=== PATIENT | male | born 1960 | race African-American/Black ===

== ENCOUNTER 2016-11-03 11:47 | Emergency (ER) | payer OTHER ==
[~2016-11-03] VITALS: Ht 162.6 cm; Wt 57.2 kg
--- NOTE | 2016-11-03 12:13 | ED GENERAL ADULT ---
See Addendum History of Present Illness General Chief Complaint: General Adult Stated Complaint: WENT TO CLINIC SUG[facility] OVER 700 Source: patient Exam Limitations: no limitations Allergies Coded Allergies: No Known Allergies (11/03/16) Reconcile Medications Ciprofloxacin HCl (Cipro) 500 MG TABLET 1 TAB PO BID UTI Insulin Detemir (Levemir) 100 UNIT/ML VIAL 10 U SC D PRN DM Metformin HCl 500 MG TABLET 1 TAB PO BID DIABETES (Reported) Triage Note: PT SENT FROM [facility] FOR COMPLAINTS OF FEELING TIRED , INCREASED URINATION AND BS ALL OVER THE PLACE, BS 463 AT TRIAGE , RAN OUT OF INSULIN, AND HAS NOT USED FOR OVER 1 YEAR, PT ALSO STATES THAT MIDDLE TOE ON L FOOT IS BLACK Triage Nurses Notes Reviewed? yes Onset: Gradual Duration: day(s): Timing: recent history HPI: 11/03/16 This is a 56-year-old male presents to the emergency department for weakness and tingling in his hands and feet. The patient states she has a history of insulin -dependent diabetes. He says he was forced to stop taking his insulin because of financial concerns. He is on metformin. The onset of the symptoms was abrupt, the duration has been days, the severity is significant as his symptoms required to come to the emergency department for care. He also states that his left third toe has turned black. He would like this looked at. He denies abdominal pain. He admits to polyuria and polydipsia. No fever. (NATALY ROSE DO) Vital Signs & Intake/Output Vital Signs & Intake/Output Vital Signs Date Time Temp Pulse Resp B/P Pulse O2 O2 Flow FiO2 Ox Delivery Rate 11/03 1724 98.1 80 18 124/78 96 Room Air 11/03 1445 98.0 70 20 130/66 96 Room Air 11/03 1329 98.7 88 20 140/78 100 Room Air 11/03 1252 96 11/03 1153 98.3 113 18 133/83 96 Room Air Past History Travel History Traveled to [place] past 21 day No Medical History Any Pertinent Medical History? 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 No (NATALY ROSE DO) Review of Systems Review of Systems Constitutional: Denies: fever. EENTM: Denies: visual changes. Respiratory: Denies: short of breath. Cardiovascular: Denies: chest pain. GI: Denies: abdominal pain. Genitourinary: Reports: see HPI. Musculoskeletal: Reports: muscle pain. Skin: Denies: rash. Neurological/Psychological: Denies: headache. Hematologic/Endocrine: Reports: no symptoms. Immunologic/Allergic: Reports: see HPI. (NATALY ROSE DO) Physical Exam Physical Exam General Appearance: alert, awake, anxious, moderate distress Head: atraumatic, normal appearance Eyes: Bilateral: normal appearance, PERRL, EOMI. Ears, Nose, Throat: dry mucous membranes Neck: normal inspection, supple, full range of motion Respiratory: normal breath sounds, chest non-tender, no respiratory distress Cardiovascular: regular rate/rhythm Peripheral Pulses: 4+ radial (R), 4+ radial (L) Gastrointestinal: soft, non-tender Back: normal range of motion Extremities: normal range of motion, no edema Neurologic/Psych: awake, alert, oriented x 3 Skin: intact Lymphatic: axilla node tender (R) ( see below) Comments: The left third toe has a distal area of blackish discoloration consistent with dry gangrene. X-ray of the left foot showing below- PATIENT: FREDA WILEY PRESENT AGE: 56 PATIENT ACCOUNT NO: [id number] : 58 LOCATION: [facility] ORDERING PHYSICIAN: NATALY RSOE DO SERVICE DATE: 11/03/16 EXAM TYPE: RAD - XRY-FOOT COMPLETE, LEFT EXAMINATION: XR FOOT, LEFT CLINICAL INFORMATION: Black toe. Evaluate for osteomyelitis. COMPARISON: No relevant prior imaging is build. TECHNIQUE: AP, lateral, and oblique views of the left foot. FINDINGS: There is erosion of the phalangeal tuft of the third digit and there is associated swelling of the soft tissues of the third toe. These findings are consistent with osteomyelitis. 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 The bones of midfoot are unremarkable. No joint effusion. IMPRESSION: There is destruction of the phalangeal tuft of the third digit with associated soft tissue swelling. These findings are consistent with osteomyelitis. Otherwise no acute finding. 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 DICTATED BY: BRANDON UMANA MD DATE/TIME DICTATED:11/03/161339 HYSTER DRIVER:ANDREZ DATE/TIME TRANSCRIBED:11/03/161339 CONFIDENTIAL, DO NOT COPY WITHOUT APPROPRIATE AUTHORIZATION. <Electronically signed in Other Vendor System> SIGNED BY: BRANDON UMANA MD 11/039 Core Measures ACS in differential dx? No CVA/TIA Diagnosis: No Severe Sepsis Present: No Septic Shock Present: No (NATALY ROSE DO) Progress Differential Diagnoses I considered the following diagnoses in my evaluation of the patient: [Gangrene, osteomyelitis, diabetic ketoacidosis, hyperglycemia, sepsis] X-ray of the left foot showing below- PATIENT: FREDA WILEY PRESENT AGE: 56 PATIENT ACCOUNT NO: [id number] : 58 LOCATION: [facility] ORDERING PHYSICIAN: NATALY ROSE DO SERVICE DATE: 11/03/16 EXAM TYPE: RAD - XRY-FOOT COMPLETE, LEFT EXAMINATION: XR FOOT, LEFT CLINICAL INFORMATION: Black toe. Evaluate for osteomyelitis. COMPARISON: No relevant prior imaging is build. TECHNIQUE: AP, lateral, and oblique views of the left foot. FINDINGS: There is erosion of the phalangeal tuft of the third digit and there is associated swelling of the soft tissues of the third toe. These findings are consistent with osteomyelitis. 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 The bones of midfoot are unremarkable. No joint effusion. IMPRESSION: There is destruction of the phalangeal tuft of the third digit with associated soft tissue swelling. These findings are consistent with osteomyelitis. Otherwise no acute finding. 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 DICTATED BY: BRANDON UMANA MD DATE/TIME DICTATED:11/03/161339 HYSTER DRIVER:ANDREZ DATE/TIME TRANSCRIBED:11/03/161339 CONFIDENTIAL, DO NOT COPY WITHOUT APPROPRIATE AUTHORIZATION. <Electronically signed in Other Vendor System> SIGNED BY: DONG MATHIS,BRANDON Patrick 11/03 134 Plan of Care: Orders Procedure Date/time Status Add-on Test (ER Only) 11/03 171 Active URINALYSIS 11/03 1328 Complete MIXED VENOUS BLOOD GAS (GEN) 11/03 1251 Complete TROPONIN LEVEL 11/03 1251 Complete COMPREHENSIVE METABOLIC PANEL 11/03 1251 Complete CBC WITHOUT DIFFERENTIAL 11/03 1251 Complete ACETONE 11/03 1251 Complete EKG 11/03 1251 Active Laboratory Tests 11/03/16 1334: Urine Color STRAW, Urine Clarity HAZY H, Urine pH 6.0, Ur Specific [place] <= 1.005, Urine Protein TRACE H, Urine Ketones TRACE H, Urine Nitrite NEG, Urine Bilirubin NEG, Urine Urobilinogen 0.2, Ur Leukocyte Esterase TRACE H, Ur Microscopic SEDIMENT EXAMINED, Urine RBC 1-3, Urine WBC 15-25 H, Urine Hemoglobin TRACE-INTACT H, Urine Glucose >=1000 H 11/03/16 1259: Bicarbonate Actual 24, Mixed VBG pH 7.41, Mixed VBG pCO2 38 L, Mixed VBG O2 Saturation 19.2 L, P-50 (Temp Corrected) N, O2 Concentration % .21, Temperature 97.0, O2 Delivery Method RA, Phlebotomy Draw Site RT 11/03/16 1259: Bicarbonate Actual Pending, Mixed VBG pH Pending, Mixed VBG pCO2 Pending, Mixed VBG O2 Saturation Pending, P-50 (Temp Corrected) Pending, Carboxyhemoglobin Pending, O2 Concentration % Pending, Temperature Pending, O2 Delivery Method Pending, Anion Gap 9, Estimated GFR > 60, BUN/Creatinine Ratio 36.3 H, Glucose 619 *H, Calcium 10.1, Total Bilirubin 0.9, AST 59, ALT 90 H, Alkaline Phosphatase 544 H, Troponin I < 0.01, Total Protein 7.3, Albumin 4.0, Globulin 3.3, Albumin/Globulin Ratio 1.2, CBC w Diff NO MAN DIFF REQ, RBC 5.64, MCV 85.9, MCH 28.9, RDW 12.4, MPV 8.1, Gran % 72.3, Lymphocytes % 19.0 L, Monocytes % 7.1 , Eosinophils % 1.5, Basophils % 0.1, Absolute Granulocytes 8.7 H, Absolute Lymphocytes 2.3, Absolute Monocytes 0.9 H, Absolute Eosinophils 0.2, Absolute Basophils 0, PUBS MCHC 33.7, Phlebotomy Draw Site Pending, Acetone Level NEGATIVE 11/03/2016 3:27:10 PM Patient signed out to me by Dr. Rose. Pending consult from Dr. Yang. 4:40 PM D/W Dr. Yang - will come to the ed in 15-[address] Yang and is going to follow up outpatient. Plans for outpatient toe amputation. Prescription called in for insulin to his pharmacy. (VOLODYMYR MATHIS,ANNA) Initial ED EKG: NSR, MOTION ARTIFACT, NONSPECIFIC st-t WAVE ABNORMALITY (NATALY ROSE DO) Departure Departure Condition: Stable Referrals: SHAYNA BALDERAS APRN (PCP/Family) Departure Forms: Customer Survey General Discharge Information Prescriptions: Current Visit Scripts Ciprofloxacin HCl (Cipro) 1 TAB PO BID #14 TAB Insulin Detemir (Levemir) 10 U SC D PRN DM #1 VIAL Comments 11/03/16 3 PM The patient was signed out to Anna Stark MD at 3 PM He is awaiting reevaluation of his glucose and podiatry consult. The patient was treated with IV fluids, IV insulin, he is pending podiatry consult. (NATALY ROSE DO) Departure Time of Disposition: 1714 Disposition: HOME OR SELF CARE Clinical Impression Primary Impression: Hyperglycemia Secondary Impressions: Gangrene, UTI (urinary tract infection) Additional Instructions: TAKE THE CIPRO AND INSULIN DIRECTED. FOLLOW UP WITH DR YANG IN THE OFFICE FOR YOUR AMPUTATION. YOUR PRESCRIPTIONS IS AT [facility]. (VOLODYMYR MATHIS,ANNA) Critical Care Note Critical Care Note Critical Care Time: non-applicable (NATALY ROSE DO) (NATALY ROSE DO)
[2016-11-03] MEDS ORDERED: METFORMIN HCL500 M3 PO (12:47)
[2016-11-03 13:12] LABS: ABSOLUTE BASOPHIL COUNT 0 /CUMM (0.0-0.2); ABSOLUTE EOSINOPHIL COUNT 0.2 /CUMM (0.0-0.7); ABSOLUTE GRANULOCYTE CT 8.7 /CUMM (1.4-6.5); ABSOLUTE LYMPH COUNT 2.3 /CUMM (1.2-3.4); ABSOLUTE MONOCYTE COUNT 0.9 /CUMM (0.10-0.60); BASOPHIL % 0.1 % (0.0-2.0); EOSINOPHIL % 1.5 % (0-5); GRANULOCYTE % 72.3 % (42.2-75.2); HEMATOCRIT 48.5 % (42-52); MEAN CORPUSCULAR HGB 28.9 PG (27.0-31.0); MEAN CORPUSCULAR HGB CONC 33.7 G/DL (33.0-37.0); MEAN CORPUSCULAR VOLUME 85.9 FL (80.0-94.0); MEAN PLATELET VOLUME 8.1 FL (7.4-10.4); PLATELET COUNT 327 /CUMM (130-400); RBC DISTRIBUTION WIDTH 12.4 % (11.5-14.5); RED BLOOD CELL CT 5.64 /CUMM (4.70-6.10); WHITE BLOOD CELL COUNT 12.1 /CUMM (4.8-10.8)
--- NOTE | 2016-11-03 13:47 | RADIOLOGY REPORT ---
EXAMINATION: XR FOOT, LEFT CLINICAL INFORMATION: Black toe. Evaluate for osteomyelitis. COMPARISON: No relevant prior imaging is build. TECHNIQUE: AP, lateral, and oblique views of the left foot. FINDINGS: There is erosion of the phalangeal tuft of the third digit and there is associated swelling of the soft tissues of the third toe. These findings are consistent with osteomyelitis. 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 The bones of midfoot are unremarkable. No joint effusion. IMPRESSION: There is destruction of the phalangeal tuft of the third digit with associated soft tissue swelling. These findings are consistent with osteomyelitis. Otherwise no acute finding. 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
[2016-11-03] MEDS ORDERED: CIPRO500 M1 PO ×2 (17:16→17:20)
[2016-11-03] MEDS ORDERED: LEVEMIR100 UNIT/1 SQ (17:16)
[2016-11-03] MEDS ORDERED: LEVEMIR100 UNIT/1 SC (17:20)
[2016-11-03 17:24] VITALS: BP 124/78
== END 2016-11-03 17:19 ==
LOC: ERH 11:47
PROVIDERS: Emergency Medicine
DX: E11.65 Type 2 diabetes mellitus with hyperglycemia (principal); E11.52 Type 2 diabetes mellitus with diabetic peripheral angiopathy with gangrene; N39.0 Urinary tract infection, site not specified
CPT/HCPCS: 73630-LT; 81001; 87086; 87147; 93005; 93010; 96361; 96374; J1815

== ENCOUNTER 2016-11-09 03:52 | Inpatient (IN) | payer OTHER ==
--- NOTE | 2016-11-07 16:01 | History & Physical Pre-Op ---
General Information and HPI History of Present Illness: Ortiz is a 56-year-old poorly controlled diabetic with a long-standing history of a nonhealing ulcer to his left foot. Ortiz presented to the ER with his daughter after after feeling unwell and noticing worsening changes to his toe. Patient admits to a foul odor with redness and swelling extending to the metatarsophalangeal joint. The patient denies systemic signs of infection. Patient denies nausea vomiting fever chills. 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 Heart sounds rate and rhythm regular. Lower extremity physical exam demonstrates intact pedal pulses bilaterally. Pulses dorsalis pedis and posterior tibial arteries are palpable bilaterally. Patient noted to have a sensory deficit to the plantar aspect of both feet in a moccasin type distribution. Assessment/Plan Assessment/Plan: Left foot osteomyelitis. A lengthy discussion reviewing both surgical and conservative options was held the patient at bedside and the patient elects to go forward with surgery despite the risks. As Ranked By This Provider Problem List: 1. Other acute osteomyelitis, left ankle and foot Attending MD Review Statement Attending Statement Attending MD Statement: examined this patient
[~2016-11-09] VITALS: Ht 162.6 cm; Wt 56.7 kg
[~2016-11-09 03:52] MED LIST: CIPRO500 M1 PO; LEVEMIR100 UNIT/1 SC; LEVEMIR100 UNIT/1 SQ; METFORMIN HCL500 M3 PO
--- NOTE | 2016-11-09 11:57 | Operative Report ---
Operative/Inv Procedure Report Surgery Date: 11/09/16 Name of Procedure: 1 open incision and drainage deep to the D fashion with exposure of the extensor and flexor tendon and tendon sheath multiple sites left foot 2 partial third ray resection left foot 3 intraoperative administration of ankle block anesthesia 4 excisional debridement Pre-Operative Diagnosis: 1 open necrotic wound left foot 2 osteomyelitis left foot 3 diabetic peripheral neuropathy Post-Operative Diagnosis: The same Estimated Blood Loss: less than 50ml Surgeon/Tank Riveter: CATHLEEN YANG DPM Anesthesia: moderate sedation, block Operative/Procedure Note Note: After obtaining informed consent the patient was brought to the operating room and placed on the operating table in the supine position. The patient isn't securely fastened to the operating table utilizing safety belt. After administration of IV sedation, 10 mL of 0.5% Marcaine plain was infiltrated about the patient's left ankle. Left foot and ankle within scrubbed prepped and draped in usual aseptic manner. Attention directed to the left foot well. Full -thickness chronic was identified. A 15 blade visualized sharply revised skin margins. Dissection was then carried down deep to the fashion with exposure of the extensor and flexor tendon tension multiple sites left foot. All necrotic nonviable infected tissue sharply evacuated wound bed. The dissection was then carried down to the periosteum overlying the distal third ray which is incised reflected. Sagittal bone saw was utilized performed through and through osteotomy. The distal osseous segment was freed and passed number field specimen sent for both microbiologic and pathologic inspection. Nipple was then irrigated with 3 L normal sterile saline. Following this the foot was redraped and the surgeon's top gloves were changed clean gloves. Any bleeding vessels identified were cauterized or ligated as encountered. Nipple was then packed with iodoform and 3-0 nylon retention sutures were placed. Foot was dressed with 4 x 4's Kerlix and Jose wrap. The patient was noted to tolerate both procedure and anesthesia well and the patient was transported from the operating room to recovery by sent stable.
--- NOTE | 2016-11-09 14:09 | Cons- Medical ---
JOHANN CHARLES 11/09/16 1407: General Information and HPI Consulting Request Date of Consult: 11/09/16 Requested By: CATHLEEN YANG DPM Reason for Consult: Management of diabetes Source of Information: patient Exam Limitations: no limitations History of Present Illness: Patient is a 56-year-old man with past medical history of insulin-dependent diabetes mellitus, nonhealing ulcer of left foot and diabetic neuropathy. Patient is status post excisional debridement and partial third ray resection of left foot by Dr. Yang today. On November 03 patient was sent from [facility] for complaints of feeling tired, hyperglycemia, black middle toe of left foot with increased redness and swelling and increased urination. In ER he was afebrile and hemodynamically stable and found to have leukocytosis 12.1, hyperkalemia 5.9 and blood glucose of 619. He was treated for hyperglycemia with IV fluids and IV insulin. He was also diagnosed with UTI. Left foot x-ray was done that showed third digit osteomyelitis. He was seen by Dr. Yang in ER who planned for outpatient toe amputation. Patient was discharged from ER on insulin Levemir for diabetes and ciprofloxacin for UTI. Urine culture was sent at that time that Later grew beta strep group B. Patient took ciprofloxacin for 2 days and came to the OR for toe amputation this morning. Preoperatively patient was hemodynamically stable. His blood sugar was 368 and he was given 5 units of insulin. Postoperatively patient does not have any complaints. He was following Dr. Valenzuela for his diabetes management who put him on insulin. Later on she moved and physician who took her spot was trying to wean him off insulin and started him on metformin. According to patient he took metformin only for 3 months. Because of insurance issues he was not taking insulin over a year. His diabetes is very poorly controlled. He has recently started seeing a PA, does not remember his name. Allergies/Medications Allergies: Coded Allergies: No Known Allergies (11/03/16) Home Med List: Ciprofloxacin HCl (Cipro) 500 MG TABLET 1 TAB PO BID UTI Insulin Detemir (Levemir) 100 UNIT/ML VIAL 10 U SC D PRN DM Metformin HCl 500 MG TABLET 1 TAB PO BID DIABETES (Reported) Current Medications: Current Medications Sig/Anastasiya Start time Last Medication Dose Route Stop Time Status Admin Acetaminophen 650 MG Q6P PRN 11/09 1351 AC PO Ampicillin Sodium/ 3,000 MG Q6 11/09 1800 AC Sulbactam Sodium IV Sodium Chloride 100 ML Docusate Sodium 100 MG BID PRN 11/09 1351 AC PO Heparin Sodium 5,000 UNIT Q8 11/09 1400 AC (Porcine) SC Insulin Aspart See Dose TIDAC 11/09 1700 DC Insts (1) SC Insulin Aspart 0 TIDAC 11/09 1700 AC SC Insulin Detemir 10 UNITS BID 11/09 2200 AC SC Oxycodone HCl 5 MG Q6P PRN 11/09 1351 AC PO Patient Medication 1 UNIT ONE NR 11/09 1415 AC Teaching ED 11/09 2014 Patient Medication 1 UNIT ONE NR 11/09 1415 AC Teaching ED 11/09 2014 Patient Medication 1 UNIT ONE NR 11/09 1415 Teaching ED 11/09 2014 Senna/Docusate Sodium 1 TAB DAILY NEEDED PRN 11/09 1351 AC PO Dose Instructions: (1)Insulin Aspart: NOVOLOG SLIDING SCALE Review of Systems Review of Systems Constitutional: Reports: see HPI. 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 Home Smoking Status: Current Everyday Smoker (3-5 cig/day) ETOH Use: denies use Illicit Drug Use: denies illicit drug use Functional Ability ADLs Independent: dressing, eating, toileting, bathing. Ambulation: independent IADLs Independent: shopping, housework, finances, food prep, telephone, transportation , medication admin. Employment History Employment: Employed Exam & Diagnostic Data Last 24 Hrs of Vital Signs/I&O Vital Signs Date Time Temp Pulse Resp B/P Pulse O2 O2 Flow FiO2 Ox Delivery Rate 11/09 1430 97.4 89 16 132/76 98 Room Air Physical Exam General Appearance: no apparent distress, alert, awake Neck: supple Respiratory: normal breath sounds, chest non-tender, lungs clear Cardiovascular: regular rate/rhythm Gastrointestinal: normal bowel sounds, soft, non-tender Back: normal inspection Extremities: left foot bandage in place. pulses palpable. sensations intact. Neurologic/Psych: no motor/sensory deficits, awake, alert, oriented x 3 Last 24 Hrs of Labs/Tez: not done Assessment/Plan Assessment/Plan Patient is a 56-year-old man with past medical history of insulin-dependent diabetes mellitus, nonhealing ulcer of left foot and diabetic neuropathy. Patient is status post excisional debridement and partial third ray resection of left foot by Dr. Yang today. Postoperatively his vitals were temperature 97.4, pulse 89, respiratory rate 16, blood pressure 132/76 and oxygen saturation 98% on room air. He offers no complaints. Pain is better controlled. Problem list 1. Left third toe osteomyelitis status post excisional debridement and partial third ray resection of left foot. Cultures were sent from OR. Patient has been started on IV Unasyn postoperatively. 2. Poorly controlled diabetes mellitus. Postop blood sugar is 343 3. Recent UTI. Patient was on ciprofloxacin. Urine cultures are growing beta strep group B, sensitive to penicillin and amoxicillin. Not sensitive to Cipro. Patient has already been started on IV Unasyn for osteomyelitis. we would follow up OR cultures. Continue pain management. We will start patient on medium dose NovoLog sliding scale and insulin Levemir 10 units twice a day. Accu-Cheks before each meal and at bedtime. Endocrinology consult. Nutrition consult for diabetic diet instructions. For UTI we will repeat UA and urine culture. Previous urine culture grew beta strep group B that is sensitive to penicillins and amoxicillin. Patient is already on Unasyn so it would cover for that too. We would repeat all labs in a.m. Continue diabetic diet. Subcutaneous heparin for DVT prophylaxis. Full code. Problem List: 1. Hyperglycemia 2. UTI (urinary tract infection) 3. Other acute osteomyelitis, left ankle and foot Consult Acknowledgment - Thank you for your consult request. SYED COYLE MD 11/09/16 8037: Assessment/Plan Consult Acknowledgment - Thank you for your consult request. Attending MD Review Statement Attending Statement Attending MD Statement: examined this patient, discuss w/resident/PA/PERSONAL INJURY LEGAL ASSISTANT, agreed w/resident/PA/PERSONAL INJURY LEGAL ASSISTANT, reviewed EMR data (avail), discussed with nursing, amended to note Attending Assessment/Plan: The patient is a 56 yo male with h/o DM2 (poorly controlled) with neuropathy who was admitted to the Podiatry service (Dr. Yang) after undergoing left foot ray amputation of the 3rd toe and drainage/debridement of a foot ulcer with X- ray showing osteomyelitis distal 3rd toe. He had been seen in the ED recently and had a blood sugar in the 600's and was begun back on insulin. Was also noted to have a UTI and was treated with 2 days of po Cipro (grew beta strep B from urine?). He has recently been seeing Merrick Fierro for his new PCP. He states he has had glucose meters at home that do not work. Admits to not being compliant with a diet and has not had instructions in many years. He has a history of problems with insurance coverage in the past. Currently he states he has still had high sugars when they have been checked. Physical Exam: VS: T 97.4, P 89, R 16, BP 132/76, PO 98% RA HEENT: eyes- PERRLA, EOMI sylvia- moist mucosa w/o lesions Neck: no bruits or JVD Chest: clear Cor: RRR, nl S1, S2 w/o murm Abd: BS+, soft, NT, - HSM Ext: s/p surgery left foot (dressing dry & intact), no edema Neuro: diminished sensation distal LE, alert & oriented x 3, non-focal exam otherwise Labs/Tests- as above Impression/Plan: #Osteomyelitis Left Foot- 3rd toe on X-ray with non-healing ulcer. S/P ray amputation, debridement and drainage done by Dr. Yang with deep culture done. No fever or leukocytosis. Plan: Agree with Unasyn as ordered pending cultures. Post operative care as per Dr. Yang. #DM2- poorly controlled for quite some time. As above, patient does not have functioning glucose meter at home and little knowledge of diet, etc. Plan: Endocrinology consult Dr. Campbell. Continue Levemir and sliding scale Humalog. Diabetic Teaching- Nutrition consult while in hospital. Will obtain glucose meter and have nursing do diabetic teaching. Will need further OP evaluation (ophthalmology, urine microalbumin, etc. ). May benefit from EL or ARB. #Recent UTI- as above, grew beta strep B from ED urine. Took Cipro x 2 days. Plan: Will repeat U/A & C&S, started on Unasyn for foot infection. #Diabetic Neuropathy- no c/o pain at present. Plan: Will follow.
[2016-11-09 14:30] VITALS: BP 132/76
[2016-11-09 18:30] VITALS: BP 124/70
--- NOTE | 2016-11-09 20:36 | Cons- Endocrinology ---
General Information and HPI Consulting Request Date of Consult: 11/09/16 Requested By: medical team Reason for Consult: DM management Source of Information: patient, old records Exam Limitations: no limitations History of Present Illness: 56 y/o male with Hx of uncontrolled DM type 2, intolerance to metformin due to GI side effects, was admitted for non healing left foot infection complicated with osteomyelitis, underwent surgical procedure. I was asked to see him for management of DM. His FSG was 324 after the procedure is done. Allergies/Medications Allergies: Coded Allergies: No Known Allergies (11/03/16) Home Med List: Ciprofloxacin HCl (Cipro) 500 MG TABLET 1 TAB PO BID UTI Insulin Detemir (Levemir) 100 UNIT/ML VIAL 10 U SC D PRN DM Metformin HCl 500 MG TABLET 1 TAB PO BID DIABETES (Reported) Review of Systems Review of Systems Constitutional: Reports: see HPI. Cardiovascular: Denies: chest pain, palpitations. Respiratory: Denies: short of breath. GI: Denies: abdominal pain. Musculoskeletal: Reports: see HPI. Hematologic/Endocrine: Denies: polyuria, polydipsia. 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 Home Smoking Status: Current Everyday Smoker (3-5 cig/day) ETOH Use: denies use Illicit Drug Use: denies illicit drug use Functional Ability ADLs Independent: dressing, eating, toileting, bathing. Ambulation: independent IADLs Independent: shopping, housework, finances, food prep, telephone, transportation , medication admin. Employment History Employment: Employed Exam & Diagnostic Data Last 24 Hrs of Vital Signs/I&O Vital Signs Date Time Temp Pulse Resp B/P Pulse O2 O2 Flow FiO2 Ox Delivery Rate 11/09 1830 98.0 86 20 124/70 96 Room Air 11/09 1430 97.4 89 16 132/76 98 Room Air Intake & Output 11/09 1600 11/09 0800 11/09 0000 Intake Total Output Total Balance Patient 126 lb Weight Physical Exam General Appearance: no apparent distress Neck: normal inspection Respiratory: decreased breath sounds Cardiovascular: regular rate/rhythm Extremities: s/p left foot procedure Assessment/Plan Assessment/Plan 56 y/o male with Hx of uncontrolled DM type 2, intolerance to metformin due to GI side effects, was admitted for non healing left foot infection complicated with osteomyelitis, underwent surgical procedure. DM management: 1.Levemir 10 units twice a day. 2. Novolog coverage before meals and Novolog coverage at bedtime-- detail see the inpatient DM orders. 3.check HbA1c and BMP tomorrow morning. 4. monitor FSGs. will follow Inpatient Diabetes Orders Before Each Meal: Bolus Insulin: Novolog < 80 mg/dl: no coverage 80-100 mg/dl: 4 units 101-120 mg/dl: 4 units 121-150 mg/dl: 4 units 151-200 mg/dl: 6 units 201-250 mg/dl: 8 units 251-300 mg/dl: 10 units 301-350 mg/dl: 12 units 351-400 mg/dl: 14 units > 400 mg/dl: 16 units Bedtime: Bolus Insulin: Novolog < 80 mg/dl: no coverage 80-100 mg/dl: no coverage 101-120 mg/dl: no coverage 121-150 mg/dl: no coverage 151-200 mg/dl: no coverage 201-250 mg/dl: no coverage 251-300 mg/dl: 2 units 301-350 mg/dl: 3 units 351-400 mg/dl: 4 units > 400 mg/dl: 5 units Consult Acknowledgment - Thank you for your consult request.
[2016-11-09 20:43] VITALS: BP 116/60
[2016-11-10 00:29] VITALS: BP 132/64
[2016-11-10 04:30] VITALS: BP 124/60
[2016-11-10 08:02] LABS: ABSOLUTE BASOPHIL COUNT 0.1 /CUMM (0.0-0.2); ABSOLUTE EOSINOPHIL COUNT 0.3 /CUMM (0.0-0.7); BASOPHIL % 0.6 % (0.0-2.0); MEAN CORPUSCULAR HGB 29.5 PG (27.0-31.0); MEAN CORPUSCULAR HGB CONC 34.4 G/DL (33.0-37.0); MEAN CORPUSCULAR VOLUME 85.9 FL (80.0-94.0); MEAN PLATELET VOLUME 8.1 FL (7.4-10.4)
[2016-11-10 08:31] LABS: ABSOLUTE GRANULOCYTE CT 5.2 /CUMM (1.4-6.5); ABSOLUTE MONOCYTE COUNT 0.5 /CUMM (0.10-0.60); EOSINOPHIL % 3.3 % (0-5); PLATELET COUNT 280 /CUMM (130-400); RBC DISTRIBUTION WIDTH 12.6 % (11.5-14.5); RED BLOOD CELL CT 4.38 /CUMM (4.70-6.10); WHITE BLOOD CELL COUNT 9.1 /CUMM (4.8-10.8)
[2016-11-10 08:37] LABS: HEMATOCRIT 37.6 % (42-52)
--- NOTE | 2016-11-10 08:45 | PN- Diabetes ---
Assessment/Plan Assessment: 56 y/o male with Hx of uncontrolled DM type 2, intolerance to metformin due to GI side effects, was admitted for non healing left foot infection complicated with osteomyelitis, underwent surgical procedure. He was put on Levemir 10 units twice a day, Novolog coverage before meals and Novolog coverage at bedtime. His FSGs were 138 and 319. Plan: 1. increase Levemir to 15 units twice a day; 2. continue the current Novolog coverage before meals and Novolog coverage at bedtime; 3. monitor FSGs. will follow. Subjective Subjective: He feels okay this morning. Objective Last 24 Hrs of Vital Signs/I&O Vital Signs Date Time Temp Pulse Resp B/P Pulse O2 O2 Flow FiO2 Ox Delivery Rate 11/10 0430 98.5 77 18 124/60 97 Room Air 11/10 0029 98.4 83 20 132/64 94 Room Air 11/09 2043 98.4 84 18 116/60 98 Room Air 11/09 1830 98.0 86 20 124/70 96 Room Air 11/09 1430 97.4 89 16 132/76 98 Room Air Intake & Output 11/10 1600 11/10 0800 11/10 0000 Intake Total 460 450 Output Total 400 1 Balance 60 449 Intake, IV 220 Intake, Oral 240 450 Number 0 Bowel Movements Output, Stool 1 Output, Urine 400 Findings Pertinent Lab/Tez Results: Laboratory Tests 11/10 611 Chemistry Sodium (137 - 145 mmol/L) 136 L Potassium (3.5 - 5.1 mmol/L) 4.2 Chloride (98 - 107 mmol/L) 103 Carbon Dioxide (22 - 30 mmol/L) 30 Anion Gap (5 - 16) 4 L BUN (9 - 20 mg/dL) 17 Creatinine (0.7 - 1.2 mg/dL) 0.6 L Estimated GFR (>60 ml/min) > 60 BUN/Creatinine Ratio (7 - 25 %) 28.3 H Hematology CBC w Diff NO MAN DIFF REQ WBC (4.8 - 10.8 /CUMM) 9.1 RBC (4.70 - 6.10 /CUMM) 4.38 L Hgb (14.0 - 18.0 G/DL) 12.9 L Hct (42 - 52 %) 37.6 L MCV (80.0 - 94.0 FL) 85.9 MCH (27.0 - 31.0 PG) 29.5 RDW (11.5 - 14.5 %) 12.6 Plt Count (130 - 400 /CUMM) 280 MPV (7.4 - 10.4 FL) 8.1 Gran % (42.2 - 75.2 %) 57.0 Lymphocytes % (20.5 - 51.1 %) 33.1 Monocytes % (1.7 - 9.3 %) 6.0 Eosinophils % (0 - 5 %) 3.3 Basophils % (0.0 - 2.0 %) 0.6 Absolute Granulocytes (1.4 - 6.5 /CUMM) 5.2 Absolute Lymphocytes (1.2 - 3.4 /CUMM) 3.0 Absolute Monocytes (0.10 - 0.60 /CUMM) 0.5 Absolute Eosinophils (0.0 - 0.7 /CUMM) 0.3 Absolute Basophils (0.0 - 0.2 /CUMM) 0.1 PUBS MCHC (33.0 - 37.0 G/DL) 34.4
--- NOTE | 2016-11-10 10:50 | PN- Medicine Consult ---
JOHANN CHARLES 11/10/16 1039: Assessment/Plan Assessment/Plan Assessment: Patient is a 56-year-old man with past medical history of poorly controlled insulin-dependent diabetes mellitus, nonhealing ulcer of left foot and diabetic neuropathy. Patient is status post excisional debridement and partial third ray resection of left foot by Dr. Maynard yesterday. His vitals are stable. This morning blood sugar is 319. He has been seen by director of public safety, Dr. lincoln for management of his diabetes. Problem list 1. Left third toe osteomyelitis 2. Poorly controlled diabetes mellitus. 3. Recent UTI We will continue IV Unasyn for osteomyelitis. Will follow-up further Dr. Maynard recommendations. Follow-up OR cultures. We will continue Accu-Cheks before each meal and bedtime. Patient is on NovoLog insulin sliding scale and insulin Levemir 15 units twice a day. Appreciated Dr. lincoln recommendations. Continue pain management and bowel regimen. Follow-up UA and urine culture. Subcutaneous heparin for DVT prophylaxis. Continue diabetic diet. Full code Plan: as above Subjective Subjective: No overnight events. Patient is alert, awake and oriented. He is hemodynamically stable. He offers no complaints this morning. Pain is better controlled. Review of Systems Constitutional: Reports: see HPI. Objective Last 24 Hrs of Vital Signs/I&O Vital Signs Date Time Temp Pulse Resp B/P Pulse O2 O2 Flow FiO2 Ox Delivery Rate 11/10 0430 98.5 77 18 124/60 97 Room Air 11/10 0029 98.4 83 20 132/64 94 Room Air 11/09 2043 98.4 84 18 116/60 98 Room Air 11/09 1830 98.0 86 20 124/70 96 Room Air 11/09 1430 97.4 89 16 132/76 98 Room Air Intake & Output 11/10 1600 11/10 0800 11/10 0000 Intake Total 460 450 Output Total 400 1 Balance 60 449 Intake, IV 220 Intake, Oral 240 450 Number 0 Bowel Movements Output, Stool 1 Output, Urine 400 Patient 125 lb Weight Physical Exam General Appearance: no apparent distress, alert, awake, comfortable Neck: supple Cardiovascular: regular rate/rhythm Respiratory: lungs clear Abdomen: normal bowel sounds, soft, non-tender Extremities: no edema, left foot bandage intact. mo edema. sensations intact. pulses palpable Current Medications: Current Medications Sig/Anastasiya Start time Last Medication Dose Route Stop Time Status Admin Acetaminophen 650 MG Q6P PRN 11/09 1351 AC PO Ampicillin Sodium/ 3,000 MG Q6 11/09 1800 AC 11/10 Sulbactam Sodium IV 0601 Sodium Chloride 100 ML Docusate Sodium 100 MG BID PRN 11/09 1351 AC PO Heparin Sodium 5,000 UNIT Q8 11/09 1400 AC 11/10 (Porcine) SC 0605 Insulin Aspart 0 TIDAC/HS 11/09 2100 AC 11/10 SC 0802 Insulin Aspart 12 UNITS ONCE ONE 11/09 1745 DC 11/09 SC 11/09 1746 1806 Insulin Aspart See Dose TIDAC 11/09 1700 DC Insts (1) SC Insulin Aspart 0 TIDAC 11/09 1700 DC SC Insulin Detemir 15 UNITS BID 11/10 1000 AC SC Insulin Detemir 10 UNITS BID 11/09 2200 DC SC Insulin Detemir 10 UNITS BID 11/09 1715 DC 11/10 SC 0802 Oxycodone HCl 5 MG Q6P PRN 11/09 1351 AC PO Patient Medication 1 UNIT ONE NR 11/09 1415 NJ Teaching ED 11/09 2014 Patient Medication 1 UNIT ONE NR 11/09 1415 NJ Teaching ED 11/09 2014 Patient Medication 1 UNIT ONE NR 11/09 1415 NJ Teaching ED 11/09 2014 Senna/Docusate Sodium 1 TAB DAILY NEEDED PRN 11/09 1351 AC PO Dose Instructions: (1)Insulin Aspart: NOVOLOG SLIDING SCALE Results Last 24 Hrs Lab/Tez Results: Laboratory Tests 11/10/16 0612: Anion Gap 4 L, Estimated GFR > 60, BUN/Creatinine Ratio 28.3 H, CBC w Diff NO MAN DIFF REQ, RBC 4.38 L, MCV 85.9, MCH 29.5, RDW 12.6, MPV 8.1, Gran % 57.0, Lymphocytes % 33.1, Monocytes % 6.0, Eosinophils % 3.3, Basophils % 0.6, Absolute Granulocytes 5.2, Absolute Lymphocytes 3.0, Absolute Monocytes 0.5, Absolute Eosinophils 0.3, Absolute Basophils 0.1, PUBS MCHC 34.4 Microbiology 11/09 1452 URINE ROUT: Urine Culture - COLB 11/09 1200 EXTREMITIE: Gross Specimen Examination - RES 11/09 1200 EXTREMITIE: Gram Stain - RES 11/09 1135 EXTREMITIE: Culture & Sensitivity - CAN Cancelled: 11/09 1135 EXTREMITIE: Gram Stain - CAN Cancelled: SYED COYLE MD 11/10/166: Attending MD Review Statement Attending Sign Off Attending Cosign Statement: I have: examined this patient, reviewed avalbl EMR data, discussd w/resident/PA/ WALLCOVERING HANGER, discussed mgmt plan w/brenden, agreed w/resident/PA/WALLCOVERING HANGER, amended to note. Other Findings: The patient was seen and discussed with house staff. Agree with the plan of care as outlined. Spoke with case management regarding obtaining glucose meter.
[2016-11-10 11:53] VITALS: BP 120/70
--- NOTE | 2016-11-10 13:39 | PN- Podiatry ---
Subjective Subjective: Patient seen at bedside without any acute complaints. Patient denies nausea vomiting fever chills. Patient denies any significant pain to his left foot. Objective Vital Signs and I&Os Vital Signs Date Time Temp Pulse Resp B/P Pulse O2 O2 Flow FiO2 Ox Delivery Rate 11/10 1153 98.2 84 20 120/70 97 11/10 0430 98.5 77 18 124/60 97 Room Air 11/10 0029 98.4 83 20 132/64 94 Room Air 11/09 2043 98.4 84 18 116/60 98 Room Air 11/09 1830 98.0 86 20 124/70 96 Room Air 11/09 1430 97.4 89 16 132/76 98 Room Air Intake & Output 11/10 1600 11/10 0800 11/10 0000 11/09 1600 11/09 0800 11/09 0000 Intake Total 300 460 450 Output Total 400 1 Balance 300 60 449 Intake, IV 220 Intake, Oral 300 240 450 Number 0 Bowel Movements Output, Stool 1 Output, Urine 400 Patient 125 lb 126 lb Weight Physical Exam: Dressing left foot clean dry and intact. No strikethrough identified. No pain with deep palpation bilateral lower extremity is. Assessment/Plan Assessment/Plan Left lower extremity cellulitis with underlying osteomyelitis. Continue IV antibiotics and glucose management per medicine team. Patient to the OR tomorrow for revision and closure. Core Measures/Miscellaneous Venous Thromboembolism VTE Risk Factors: Age > 40, Surgery VTE Contraindications: No Contraindications VTE Prophylaxis Ordered Inpt: Pharm- Heparin VTE Diagnosis: No Beta Shannan Is Beta Shannan a Home Med? No Antibiotics Is Patient on Antibiotics? Yes If Yes: infection Attending MD Review Statement Attending Statement Attending MD Statement: examined this patient
[2016-11-10 14:38] VITALS: BP 110/68
[2016-11-10 22:11] VITALS: BP 110/80
[2016-11-11 06:21] VITALS: BP 132/74
--- NOTE | 2016-11-11 10:07 | PN- Medicine Consult ---
JOHANN CHARLES 11/11/16 1003: Assessment/Plan Assessment/Plan Assessment: Patient is a 56-year-old man with past medical history of poorly controlled insulin-dependent diabetes mellitus, nonhealing ulcer of left foot and diabetic neuropathy. Patient is status post excisional debridement and partial third ray resection of left foot by Dr. Maynard yesterday. His vitals are stable. Nothing by mouth from midnight last night. Problem list 1. Left third toe osteomyelitis. Patient is going to OR for revision and wound closure today. 2. Poorly controlled diabetes mellitus. This morning blood sugar is 125. Yesterday blood sugar was around 400. 3. Recent UTI. UA is negative for urine leukocyte esterase and urine nitrite. Urine WBCs 5-10. Urine cultures negative to date. We will continue IV Unasyn for osteomyelitis. Will follow-up further Dr. Maynard recommendations. Follow-up OR cultures. We will continue Accu-Cheks before each meal and bedtime. Appreciated Dr. lincoln recommendations. Continue pain management and bowel regimen. Subcutaneous heparin for DVT prophylaxis. Continue diabetic diet. Full code Plan: as above Subjective Subjective: No overnight events. Patient is hemodynamically stable. He is sleeping comfortably. He is nothing by mouth from midnight last night and going to OR for revision and closure of wound by Dr. Maynard today. Review of Systems Constitutional: Reports: see HPI. Comments: Patient sleeping Objective Last 24 Hrs of Vital Signs/I&O Vital Signs Date Time Temp Pulse Resp B/P Pulse O2 O2 Flow FiO2 Ox Delivery Rate 11/11 0621 98.1 96 20 132/74 98 Room Air 11/10 2211 98.1 96 20 110/80 97 Room Air 11/10 1438 97.9 94 20 110/68 98 11/10 1153 98.2 84 20 120/70 97 Intake & Output 11/11 1600 11/11 0800 11/11 0000 Intake Total 220 480 Output Total Balance 220 480 Intake, IV 100 Intake, Oral 120 480 Physical Exam General Appearance: sleeping comfortably Extremities: left foot bandage intact. No swelling Current Medications: Current Medications Sig/Anastasiya Start time Last Medication Dose Route Stop Time Status Admin Acetaminophen 650 MG Q6P PRN 11/09 1351 AC 11/11 PO 0613 Ampicillin Sodium/ 3,000 MG Q6 11/09 1800 AC 11/11 Sulbactam Sodium IV 0557 Sodium Chloride 100 ML Dextrose/Sodium 1,000 ML Q13H 11/11 0600 AC 11/11 Chloride IV 0558 Docusate Sodium 100 MG BID PRN 11/09 1351 AC PO Heparin Sodium 5,000 UNIT Q8 11/09 1400 AC 11/11 (Porcine) SC 0557 Insulin Aspart 0 Q6 11/10 2359 DC 11/11 SC 0559 Insulin Aspart 0 TIDAC/HS 11/09 2100 DC 11/10 SC 1220 Insulin Detemir 7 UNITS AT BEDTIME 11/10 2200 AC 11/10 SC 2123 Insulin Detemir 15 UNITS BID 11/10 1000 DC 11/10 SC 1221 Insulin Human Regular 0 Q6 11/11 1200 AC SC Oxycodone HCl 5 MG Q6P PRN 11/09 1351 AC PO Patient Medication 1 ED .STK-MED ONE 11/10 1400 DC Teaching ED 11/10 1401 Senna/Docusate Sodium 1 TAB DAILY NEEDED PRN 11/09 1351 AC PO Results Last 24 Hrs Lab/Tez Results: Laboratory Tests 11/10/16 1700: Urine Color YEL, Urine Clarity HAZY H, Urine pH 6.5, Ur Specific [place] 1.020, Urine Protein 30 H, Urine Ketones TRACE H, Urine Nitrite NEG, Urine Bilirubin NEG, Urine Urobilinogen 1.0, Ur Leukocyte Esterase NEG, Ur Microscopic SEDIMENT EXAMINED, Urine WBC 5-10 H, Ur Epithelial Cells FEW, Urine Hemoglobin NEG, Urine Glucose 250 H Microbiology 11/10 1700 URINE ROUT: Urine Culture - RES SYED COYLE MD 11/11/16 1122: Assessment/Plan Assessment/Plan Plan: as above Attending MD Review Statement Attending Sign Off Attending Cosign Statement: I have: examined this patient, reviewed [facility] EMR data, discussd w/resident/PA/ DOORSHAKER, agreed w/resident/PA/DOORSHAKER, amended to note. Other Findings: The patient was seen and agree with the plan of care as outlined. NPO for wound closure in OR today with Dr. Maynard.
--- NOTE | 2016-11-11 11:57 | Operative Report ---
Operative/Inv Procedure Report Surgery Date: 11/11/16 Name of Procedure: 1 open incision and drainage deep to the deep fascia with exposure of the extensor and flexor tendon and tendon sheath multiple sites left foot 2 delayed primary closure of open surgical wound with local random advancement flap 3 revisional partial third ray resection left foot 4 intraoperative administration of ankle block anesthesia 5 excisional debridement Pre-Operative Diagnosis: 1 open necrotic wound left foot 2 osteomyelitis left foot 3 diabetic peripheral neuropathy Post-Operative Diagnosis: The same Estimated Blood Loss: less than 50ml Surgeon/Social Services Specialist: CATHLEEN YANG DPM Anesthesia: moderate sedation, block Operative/Procedure Note Note: After obtaining informed consent the patient was brought to the operating room and placed on the operating table in supine position. The patient isn't securely fastened to the operating table utilizing safety belt. After administration of IV sedation, 10 mL of 0.5% Marcaine plain was infiltrated about the patient's left ankle. Left foot and ankle within scrubbed prepped and draped in usual aseptic manner. Attention directed left foot, where a large full-thickness necrotic was identified. A 15 blade was utilized sharply revised skin margins. Dissection was then carried down deep to the fashion with exposure of the extensor and flexor tendon and tendon sheath multiple sites, both proximally and distally. All necrotic nonviable infected tissue sharply evacuated from the wound bed. Dissection was then carried down to the periosteum overlying the distal third ray which was incised reflected. The distal osseous segment was cut with a sagittal bone saw and freed and passed from the operative field. Specimen was sent for pathologic inspection. The open wound was then irrigated with 3 L of normal sterile saline infusion 50,000 units of bacitracin. Following this the foot was redraped and the surgeon's top gloves were changed clean gloves. Any bleeding vessels identified were cauterized or ligated as encountered. Next a dorsal and plantar flap was developed with release of the morning ligaments, undermining and mobilization of the adjacent tissues. The inferior flap was rotated superiorly and held centrally with 3-0 Vicryl. The dorsal flap was again developed in the same manner and rotated inferiorly and held with 3-0 Vicryl. Subtenons tissues reapproximated 4-0 Vicryl and the skin is reapproximated 3-0 nylon. Incision was dressed with Xeroform 4 x 4's Kerlix and Jose wrap. The patient was noted to tolerate both procedure and anesthesia well and the patient was transported from the operating room to recovery by sent stable best assess intact to both the dorsal and plantar flaps.
[2016-11-11 13:36] VITALS: BP 120/72
--- NOTE | 2016-11-11 17:49 | PN- Diabetes ---
Assessment/Plan Assessment: 56 y/o male with Hx of uncontrolled DM type 2, intolerance to metformin due to GI side effects, was admitted for non healing left foot infection complicated with osteomyelitis, underwent surgical procedure. He was put on Levemir 15 units twice a day, Novolog coverage before meals and Novolog coverage at bedtime. His FSGs were 159, 72, 435, 391, 125, 317 and 285. Plan: 1. continue Levemir 15 units twice a day; 2. adjust Novolog coverage before meals-- detail see the inpatient DM order; 3. continue the current Novolog coverage at bedtime; 4. monitor FSGs. will follow. Inpatient Diabetes Orders Before Each Meal: Bolus Insulin: Novolog < 80 mg/dl: No coverage 80-100 mg/dl: 6 units 101-120 mg/dl: 6 units 121-150 mg/dl: 6 units 151-200 mg/dl: 8 units 201-250 mg/dl: 10 units 251-300 mg/dl: 12 units 301-350 mg/dl: 14 units 351-400 mg/dl: 16 units > 400 mg/dl: 18 units Subjective Subjective: He has no special complaints at this point. Objective Last 24 Hrs of Vital Signs/I&O Vital Signs Date Time Temp Pulse Resp B/P Pulse O2 O2 Flow FiO2 Ox Delivery Rate 11/11 1336 97.4 86 18 120/72 98 Room Air Room Air 11/11 0621 98.1 96 20 132/74 98 Room Air 11/10 2211 98.1 96 20 110/80 97 Room Air Intake & Output 11/11 1600 11/11 0800 11/11 0000 Intake Total 200 220 480 Output Total 200 Balance 0 220 480 Intake, IV 200 100 Intake, Oral 0 120 480 Number 0 Bowel Movements Output, Urine 200
[2016-11-11 22:44] VITALS: BP 124/62
[2016-11-12 06:20] VITALS: BP 110/60
[2016-11-12 08:11] LABS: ABSOLUTE BASOPHIL COUNT 0.1 /CUMM (0.0-0.2); ABSOLUTE EOSINOPHIL COUNT 0.3 /CUMM (0.0-0.7); ABSOLUTE GRANULOCYTE CT 6.7 /CUMM (1.4-6.5); ABSOLUTE LYMPH COUNT 3.1 /CUMM (1.2-3.4); ABSOLUTE MONOCYTE COUNT 0.7 /CUMM (0.10-0.60); BASOPHIL % 0.7 % (0.0-2.0); EOSINOPHIL % 3.1 % (0-5); GRANULOCYTE % 61.7 % (42.2-75.2); HEMATOCRIT 33.4 % (42-52); MEAN CORPUSCULAR HGB 30.1 PG (27.0-31.0); MEAN CORPUSCULAR HGB CONC 34.2 G/DL (33.0-37.0); MEAN CORPUSCULAR VOLUME 87.9 FL (80.0-94.0); MEAN PLATELET VOLUME 7.8 FL (7.4-10.4); PLATELET COUNT 297 /CUMM (130-400); RBC DISTRIBUTION WIDTH 12.7 % (11.5-14.5); RED BLOOD CELL CT 3.79 /CUMM (4.70-6.10); WHITE BLOOD CELL COUNT 10.9 /CUMM (4.8-10.8)
--- NOTE | 2016-11-12 10:48 | PN- Diabetes ---
Assessment/Plan Assessment: 56 y/o male with Hx of uncontrolled DM type 2, intolerance to metformin due to GI side effects, was admitted for non healing left foot infection complicated with osteomyelitis, underwent surgical procedure. He was put on Levemir 15 units twice a day, Novolog coverage before meals was adjusted on 11/11. In addition, he is on Novolog coverage at bedtime. His FSGs were 125, 317, 285, 259 and 349. Plan: 1. increase Levemir to 20 units twice a day; 2. adjust Novolog coverage before meals-- detail see the inpatient DM order; 3. continue the current Novolog coverage at bedtime; 4. monitor FSGs. will follow. Inpatient Diabetes Orders Before Each Meal: Bolus Insulin: Novolog < 80 mg/dl: no coverage 80-100 mg/dl: 8 units 101-120 mg/dl: 8 units 121-150 mg/dl: 8 units 151-200 mg/dl: 10 units 201-250 mg/dl: 12 units 251-300 mg/dl: 14 units 301-350 mg/dl: 16 units 351-400 mg/dl: 18 units > 400 mg/dl: 20 units Subjective Subjective: His glucose level is not controlled. Objective Last 24 Hrs of Vital Signs/I&O Vital Signs Date Time Temp Pulse Resp B/P Pulse O2 O2 Flow FiO2 Ox Delivery Rate 11/12 0620 98.1 91 19 110/60 97 Room Air 11/11 2244 98.9 99 18 124/62 97 Room Air 11/11 1336 97.4 86 18 120/72 98 Room Air Room Air Intake & Output 11/12 1600 11/12 0800 11/12 0000 Intake Total 480 580 Output Total 400 Balance 80 580 Intake, IV 100 Intake, Oral 480 480 Output, Urine 400 Findings Pertinent Lab/Tez Results: Laboratory Tests 11/12 0648 Chemistry Sodium (137 - 145 mmol/L) 135 L Potassium (3.5 - 5.1 mmol/L) 4.5 Chloride (98 - 107 mmol/L) 104 Carbon Dioxide (22 - 30 mmol/L) 31 H Anion Gap (5 - 16) 0 L BUN (9 - 20 mg/dL) 16 Creatinine (0.7 - 1.2 mg/dL) 0.6 L Estimated GFR (>60 ml/min) > 60 BUN/Creatinine Ratio (7 - 25 %) 26.7 H Hematology CBC w Diff NO MAN DIFF REQ WBC (4.8 - 10.8 /CUMM) 10.9 H RBC (4.70 - 6.10 /CUMM) 3.79 L Hgb (14.0 - 18.0 G/DL) 11.4 L Hct (42 - 52 %) 33.4 L MCV (80.0 - 94.0 FL) 87.9 MCH (27.0 - 31.0 PG) 30.1 RDW (11.5 - 14.5 %) 12.7 Plt Count (130 - 400 /CUMM) 297 MPV (7.4 - 10.4 FL) 7.8 Gran % (42.2 - 75.2 %) 61.7 Lymphocytes % (20.5 - 51.1 %) 28.1 Monocytes % (1.7 - 9.3 %) 6.4 Eosinophils % (0 - 5 %) 3.1 Basophils % (0.0 - 2.0 %) 0.7 Absolute Granulocytes (1.4 - 6.5 /CUMM) 6.7 H Absolute Lymphocytes (1.2 - 3.4 /CUMM) 3.1 Absolute Monocytes (0.10 - 0.60 /CUMM) 0.7 H Absolute Eosinophils (0.0 - 0.7 /CUMM) 0.3 Absolute Basophils (0.0 - 0.2 /CUMM) 0.1 PUBS MCHC (33.0 - 37.0 G/DL) 34.2
--- NOTE | 2016-11-12 11:04 | Surgical Discharge Summary ---
Visit Information Visit Dates Admission Date: 11/09/16 Discharge Date: 11/12/16 History of Present Illness Chief Complaint: Ortiz is a 56-year-old insulin-dependent diabetic with a history of poorly controlled glucose. The patient has history of a long-standing nonhealing ulcer which unfortunately developed an underlying osteomyelitis. Patient required admission for IV antibiotics and surgical debridement. Medical History Neurological: NONE EENT: NONE Cardiovascular: NONE Respiratory: NONE Gastrointestinal: NONE Hepatic: NONE Renal: NONE Musculoskeletal: NONE Psychiatric: NONE Endocrine: diabetes Blood Disorders: NONE Cancer(s): NONE WOODS OVERSEER/Reproductive: NONE History of MRSA: No History of VRE: No History of CDIFF: No Isolation History: Standard Influenza Vaccine: 07/03/15 Surgical History Pertinent Surgical History: non-contributory Psychosocial History Where Do You Live? Home What is Your Primary Language? Bengali ETOH Use: denies use Review of Systems: Unremarkable except for that noted in history present illness Hospital Course Course Attending Physician: CATHLEEN YANG DPM Primary Care Physician: SHAYNA BALDERAS APRN Hospital Course: Patient was admitted for initial debridement of his left foot with bone cultures pending and Gram stain with gram-positive cocci. The patient tolerated the procedures and anesthesia well following the initial procedure, was transferred to the floor for empiric IV antibiotic coverage. Patient remained stable and afebrile during the course of his stay. Allergies: Coded Allergies: No Known Allergies (11/03/16) Disposition Summary Disposition Principal Diagnosis: Osteomyelitis left foot Additional Diagnosis: Left lower extremity cellulitis and elevated glucose Discharge Disposition: home or self care Discharge Instructions General Discharge Information Code Status: Full Code Patient's Diet: 2200 kcal ADA diet Patient's Activity: She'll touch left foot in surgical shoe Follow-Up Instructions/Appts: Keep dressing clean dry and intact and follow up with Dr. Yang in 1 week of discharge. Medications at Discharge Discharge Medications: Continue taking these medications: Metformin HCl (Metformin HCl) 500 MG TABLET 1 Tablet ORAL TWICE DAILY Ciprofloxacin HCl (Cipro) 500 MG TABLET 1 Tablet ORAL TWICE DAILY Qty = 14 Insulin Detemir (Levemir) 100 UNIT/ML VIAL 10 Units Inject into fatty tissue Every Day as needed for DM Qty = 1 Attending MD Review Statement Attending Statement Attending MD Statement: examined this patient
[2016-11-12] MEDS ORDERED: LEVEMIR100 UNIT/1 SC (11:11)
[2016-11-12] MEDS ORDERED: NOVOLOG100 UNIT/2 SC (11:11)
[2016-11-12] MEDS ORDERED: AUGMENTIN 875-1 EACH PO (11:13)
--- NOTE | 2016-11-12 13:49 | PN- Medicine Consult ---
JOHANN CHARLES 11/12/16 1349: Assessment/Plan Assessment/Plan Assessment: Patient is a 56-year-old man with past medical history of poorly controlled insulin-dependent diabetes mellitus, nonhealing ulcer of left foot and diabetic neuropathy. Patient is status post excisional debridement and partial third ray resection of left foot by Dr. Maynard on November 09 and then again revision and wound closure on November 11. His vitals are stable. WBC count is 10.9. H&H is 11.4/33.4. Problem list 1. Left third toe osteomyelitis. OR culture is growing scant growth of gram- positive cocci. 2. Poorly controlled diabetes mellitus. This morning blood sugar is 349 3. Recent UTI. UA is negative for urine leukocyte esterase and urine nitrite. Urine WBCs 5-10. Urine cultures negative to date. 4. Leukocytosis. Most likely reactive 5. Normocytic anemia We will discontinue IV Unasyn and switched to by mouth Augmentin for a total of 14 days. Patient will follow-up with Dr. Maynard on Tuesday, November 15. Patient was discharged on insulin Levemir 20 units twice a day and NovoLog sliding scale as he was using inpatient. He was advised to see Dr. lincoln as an outpatient for further management of his diabetes. He was given prescription for glucometer and test strips. Plan: as above Problem List: 1. Other acute osteomyelitis, left ankle and foot Subjective Subjective: No overnight events. Patient is alert, awake and oriented. He is hemodynamically stable. He offers no complaints. He is status post revision and wound closure by Dr. Cruz yesterday. Review of Systems Constitutional: Reports: see HPI. Objective Last 24 Hrs of Vital Signs/I&O Vital Signs Date Time Temp Pulse Resp B/P Pulse O2 O2 Flow FiO2 Ox Delivery Rate 11/12 0620 98.1 91 19 110/60 97 Room Air 11/11 2244 98.9 99 18 124/62 97 Room Air Intake & Output 11/12 1600 11/12 0800 11/12 0000 Intake Total 480 580 Output Total 400 Balance 80 580 Intake, IV 100 Intake, Oral 480 480 Output, Urine 400 Physical Exam General Appearance: no apparent distress, alert, awake, comfortable Neck: supple Cardiovascular: regular rate/rhythm Respiratory: lungs clear Peripheral Pulses: 3+ tibialis posterior (R), 3+ tibialis posterior (L), 3+ dorsalis pedis (R) Abdomen: normal bowel sounds, soft, non-tender Extremities: no edema, left foot bandage intact. No swelling Neurologic/Psychiatric: no motor/sensory deficits, awake, alert, oriented x 3 Current Medications: Current Medications Sig/Anastasiya Start time Last Medication Dose Route Stop Time Status Admin Acetaminophen 650 MG Q6P PRN 11/09 1351 DCD 11/11 PO 0613 Ampicillin Sodium/ 3,000 MG Q6 11/09 1800 DCD 11/12 Sulbactam Sodium IV 0541 Sodium Chloride 100 ML Docusate Sodium 100 MG BID PRN 11/09 1351 DCD PO Heparin Sodium 5,000 UNIT Q8 11/09 1400 DCD 11/12 (Porcine) SC 0544 Insulin Aspart 0 TIDAC/HS 11/11 1200 DCD 11/12 SC 1205 Insulin Detemir 20 UNITS BID 11/12 1000 DCD 11/12 SC 1002 Insulin Detemir 15 UNITS BID 11/11 2200 DC 11/11 SC 2154 Oxycodone HCl 5 MG Q6P PRN 11/09 1351 DCD PO Patient Medication 1 ED .STK-MED ONE 11/12 1329 [place] Teaching ED 11/12 1330 Senna/Docusate Sodium 1 TAB DAILY NEEDED PRN 11/09 1351 DCD PO Results Last 24 Hrs Lab/Tez Results: Laboratory Tests 11/12/16 0648: Anion Gap 0 L, Estimated GFR > 60, BUN/Creatinine Ratio 26.7 H, CBC w Diff NO MAN DIFF REQ, RBC 3.79 L, MCV 87.9, MCH 30.1, RDW 12.7, MPV 7.8, Gran % 61.7, Lymphocytes % 28.1, Monocytes % 6.4, Eosinophils % 3.1, Basophils % 0.7, Absolute Granulocytes 6.7 H, Absolute Lymphocytes 3.1, Absolute Monocytes 0.7 H, Absolute Eosinophils 0.3, Absolute Basophils 0.1, PUBS MCHC 34.2 Microbiology 11/12 903 BLOOD: Blood Culture - CAN Cancelled: Cancelled via OE: Per Decision 11/12 903 BLOOD: Blood Culture - CAN Cancelled: Cancelled via OE: Per Decision SYED COYLE MD 11/12/16 2143: Attending MD Review Statement Attending Sign Off Attending Cosign Statement: I have: examined this patient, reviewed [facility] EMR data, agreed w/resident/PA/SHEET FOLDER , amended to note. Other Findings: The patient was seen and discussed with house staff. Agree with plan of care upon discharge.
== END 2016-11-12 13:48 | DRG 617 ==
LOC: ENRESERVDT → ENRESERVTM → STS 03:52 → PACUH 11:50 → 2NA 11:50 → ENPENDDIS 11:50 → 2NA 14:23
PROVIDERS: Internal Medicine; ADMIT Podiatrist Foot & Ankle Surgery
PROC: 0Y6U0Z3 Detachment at Left 3rd Toe, Low, Open Approach (ICD-10-PCS; principal; 2016-11-09)
PROC: 0JXR0ZB Transfer Left Foot Subcutaneous Tissue and Fascia with Skin and Subcutaneous Tissue, Open Approach (ICD-10-PCS; 2016-11-11)
PROC: 0Y6U0Z3 Detachment at Left 3rd Toe, Low, Open Approach (ICD-10-PCS; 2016-11-11)
DX: E11.69 Type 2 diabetes mellitus with other specified complication (principal); M86.172 Other acute osteomyelitis, left ankle and foot; E11.65 Type 2 diabetes mellitus with hyperglycemia; L03.116 Cellulitis of left lower limb; E11.621 Type 2 diabetes mellitus with foot ulcer; Z79.4 Long term (current) use of insulin; E11.42 Type 2 diabetes mellitus with diabetic polyneuropathy; F17.210 Nicotine dependence, cigarettes, uncomplicated
CPT/HCPCS: 2NAP; 87070; 87075; 87184; 81001; 82436; 87040; 87086; 87147; 88305; 88307; J1644; J1815; J2001; J7042